=== PATIENT | male | born 1995 | race Caucasian/White ===

== ENCOUNTER 2017-02-20 13:40 | Emergency (ER) | payer OTHER ==
--- NOTE | ~2017-02-20 | EKG ---
PATIENT: YULIA GOLDEN UNIT #: [id number] Ventricular Rate: 95 BPM Atrial Rate: 95 BPM P-R Interval: 138 ms QRS Duration: 82 ms Q-T Interval: 348 ms QTC Calculation(Bezet): 437 ms P Leighton: 39 degrees Calculated R Leighton: 89 degrees Calculated T Leighton: 52 degrees Diagnosis Line: Normal sinus rhythm with sinus arrhythmia Diagnosis Line: Normal ECG Diagnosis Line: No previous ECGs available Diagnosis Line: Confirmed by SAMMY CERVANTES MD ([id number]) on Diagnosis Line: 02/22/2017 8:03:45 AM INTERPRETING MD: BILLY FONTANA
--- NOTE | ~2017-02-20 | CR72 ---
[facility]. [facility] A Service of [facility] & [facility] / [facility] RADIOLOGY TEXT RESULTS PATIENT: YULIA GOLDEN LOCATION: SED : [birth year] UNIT #: [id number] AGE: [address]: Golden Doshi MD SEX: M ORDER DR: [id number] [place] [id number] E MR#: [id number] Acc #: [id number] NAME: YULIA GOLDEN : 1995 SEX: M STUDY DATE/TIME: 02/20/2017 15:14 UNIT: SED ROOM: STUDY DESCRIPTION: CR Chest Single View Portable Attending Physician: Golden Doshi M.D. Ordering Physician: Golden Doshi M.D. Primary Care Physician: Primary Care Physician No MEDICAL IMAGING REPORT This report is preliminary unless electronic signature is present. EXAM Portable chest 02/20 INDICATIONS Panic attack, shortness of air, cough today. COMPARISON 05/11/2015 FINDINGS A single AP portable view of the chest shows both lungs to be clear. The heart is normal in size. The mediastinal contour is normal. No significant bone abnormalities are seen. IMPRESSION Normal portable chest. Dictated by... Chivo Schmitt Jr., M.D. THIS IS AN ELECTRONICALLY VERIFIED REPORT Chivo Schmitt Jr., M.D. at 02/21/2017 4:32 PM RLK/montez TD: 02/20/2017 18:16 JOB #: [id number] MEDICAL IMAGING REPORT Page 1 of 1
[~2017-02-20 13:40] MED LIST: ALBUTEROL17 GM INH; NO MEDICATIONS; PROMETHAZINE D118 ML PO
[2017-02-20] MEDS ORDERED: TRIMOX500 M1 (13:56)
[2017-02-20 14:42] LABS: BASOPHIL# 0.1 X10e3 (0-0.3); BASOPHIL% 0.4 % (0-2.5); EOSINOPHIL# 0.1 X10e3 (0-0.7); EOSINOPHIL% 0.5 % (0.0-7.0); HEMATOCRIT 49.7 % (38.0-50.0); HEMOGLOBIN 16.9 gm/dL (13.0-16.0); LYMPHOCYTE# 2.6 X10e3 (1.0-3.5); LYMPHOCYTE% 19.7 % (17.0-45.0); MEAN CORPUSCULAR HEMOGLOBIN 31.9 PG (28-34); MEAN CORPUSCULAR HGB CONC 33.9 g/dL (30-36); MEAN PLATELET VOLUME 8.7 FL (6.5-11.5); MONOCYTE# 1.2 X10e3 (0-1.0); NEUTROPHIL# 9.4 X10e3 (1.5-7.1); NEUTROPHIL% 70.4 % (40-75); PLATELET COUNT 361 X10e3 (140-420); RED BLOOD COUNT 5.29 X10e (3.90-5.60); RED CELL DISTRIBUTION WIDTH 12.6 % (11.0-15.5); WHITE BLOOD COUNT 13.4 X10e3 (4.0-10.5)
[2017-02-20 14:45] LABS: POC - CKMB 3.6 ng/mL (0.0-7.9); POC - TROPONIN 0.33 ng/mL (<=0.05)
[2017-02-20 14:49] LABS: ALBUMIN SERUM 5.5 g/dL (3.5-5.0); BILIRUBIN, DIRECT 0.2 mg/dL (0.0-0.2); BILIRUBIN,INDIRECT 0.9 mg/dL (0.0-0.9); BILIRUBIN,TOTAL 1.1 mg/dL (0.2-2.0); BUN/CREATININE RATIO 14.44; CALCIUM SERUM 9.6 mg/dL (8.4-10.2); CREATININE SERUM 0.9 mg/dL (0.6-1.4); GLOM FILT RATE Estimated 120.8 mL/min (>60); MAGNESIUM 1.8 mg/dL (1.6-3.0); PROTEIN TOTAL SERUM 8.3 g/dL (6.0-8.3)
[2017-02-20 15:00] LABS: DIFF IND NO
[2017-02-20 15:46] LABS: URINE SOURCE CLEAN CATCH
[2017-02-20 15:49] LABS: URINE APPEARANCE SL CLOUDY; URINE BLOOD NEG (NEG); URINE COLOR YELLOW; URINE GLUCOSE NEG (NORM); URINE KETONE TRACE (NEG); URINE LEUKOCYTE ESTERASE NEG (NEG); URINE NITRATE NEG (NEG); URINE PH 7.5 (5-8); URINE PROTEIN 1+ (NEG)
[2017-02-20 15:58] LABS: AMPHETAMINE POS (NEG); BARBITURATES NEG (NEG); BENZODIAZEPINES NEG (NEG); COCAINE POS (NEG); MARIJUANA POS (NEG); OPIATES NEG (NEG); TRICYCLIC ANTIDEPRESSANTS NEG (NEG); U METHADONE NEG (NEG)
[2017-02-20 16:05] LABS: MICRO INDICATED? YES; URINE BILIRUBIN NEG (NEG)
[2017-02-20 16:08] LABS: POC - CKMB 1.6 ng/mL (0.0-7.9); POC - MYOGLOBIN 31.1 ng/mL (0.0-169.0); POC - TROPONIN 0.16 ng/mL (<=0.05)
[2017-02-20 16:24] LABS: CULTURE INDICATED? NO; URINE BACTERIA NEG (NEG); URINE RBC 0-2 /[HPF] (0-2); URINE WBC 0-2 /[HPF] (0-5)
== END 2017-02-20 17:45 ==
LOC: SED 13:40
PROVIDERS: Emergency Medicine
DX: J20.9 Acute bronchitis, unspecified (principal); I31.9 Disease of pericardium, unspecified; R79.89 Other specified abnormal findings of blood chemistry; F17.210 Nicotine dependence, cigarettes, uncomplicated
CPT/HCPCS: 36415; 71010; 80048; 80076; 80307; 81003; 82553; 83605; 83735; 83874; 84484; 85025; 85379; 93005; 94640; 96361; 96374; 96375; 99285; J1650; J2060; J2270; J2405; J2930